=== PATIENT | female | born 1970 | race Caucasian/White ===

== ENCOUNTER 2016-07-09 15:03 | Emergency (ER) | payer SELFPAY ==
[~2016-07-09] VITALS: Ht 154.9 cm; Wt 61.0 kg
[2016-07-09 15:06] VITALS: Ht 154.9 cm; Wt 61.0 kg
== END 2016-07-10 01:44 | disposition left against medical advice (07) ==
LOC: E/R 15:03
DX: Z53.21 Procedure and treatment not carried out due to patient leaving prior to being seen by health care provider (principal)

== ENCOUNTER 2016-11-27 09:12 | Emergency (ER) | payer MEDICAID ==
[~2016-11-27] VITALS: Wt 61.0 kg
--- NOTE | 2016-11-27 09:59 | ERD ---
ER Documentation Chief Complaint Date/Time DATE: 11/27/16 TIME: 09:57 Chief Complaint right arm pain HPI 46-year-old female who presented emergency department for right elbow pain started yesterday while she was working. Patient stated that she was lifting an object, then twisted, heard a cracking sound to her right elbow. Reports that she developed severe pain after this. Denies headache, loss of consciousness, dizziness, blurry vision, changes in vision, photophobia, facial pain, ear pain, throat pain, difficulty swallowing, neck pain, shoulder pain, chest pain, cough, hemoptysis, abdominal pain, back pain, loss of appetite, nausea, vomiting, hematochezia, diarrhea, constipation, urinary symptoms, , the possibility of being , bladder and bowel incontinences, extremity weakness, numbness or tingling sensation, difficulty walking, recent travel, recent exposure to illness, recent antibiotic use in the last 3 months, fever, chills. No known drug allergies. Surgical history: 4. 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 Denies smoking, use of alcohol, use of illegal drugs. LMP was 10 days ago. A0. ROS All systems reviewed and are negative except as per history of present illness. Medications Home Meds Active Scripts Cyclobenzaprine Hcl* (Cyclobenzaprine Hcl*) 10 Mg Tablet, 10 MG PO Q12 Y for pain/muscle spasm, #15 TAB Prov:ERICA CRUZAR F 11/27/16 Ibuprofen* (Motrin*) 800 Mg Tab, 800 MG PO Q6H Y for PAIN AND OR ELEVATED TEMP, #30 TAB Prov:ESAU CRUZ F 11/27/16 Allergies Allergies: Coded Allergies: No Known Allergy (Verified , 12/30/13) PMhx/Soc History of Surgery: Yes (tubal ligation) Anesthesia Reaction: No Hx Neurological Disorder: No Hx Respiratory Disorders: No Hx Cardiac Disorders: No Hx Psychiatric Problems: No Hx Miscellaneous Medical Probl: No Hx Alcohol Use: Yes (occasional) Hx Substance Use: No Hx Tobacco Use: No Physical Exam Vitals Vital Signs Date Time Temp Pulse Resp B/P Pulse Ox O2 Delivery O2 Flow Rate FiO2 11/27/16 09:17 98.1 88 18 141/68 99 Physical Exam Const: [] Head: Atraumatic Eyes: Normal Conjunctiva ENT: Normal External Ears, Nose and Mouth. Neck: Full range of motion..~ No meningismus. Resp: Clear to auscultation bilaterally Cardio: Regular rate and rhythm, no murmurs Abd: Soft, non tender, non distended. Normal bowel sounds Skin: No petechiae or rashes Back: No midline or flank tenderness Ext: No cyanosis, or edema. Right elbow has tenderness medially and laterally but is good and full range of motion. Right shoulder/humerus/radial and ulnar aspect/wrist/hand/fingers are unremarkable. Left upper extremity are unremarkable. Neur: Awake and alert Psych: Normal Mood and Affect Results 24 hrs Current Medications Medications (Trade) Dose Ordered Sig/Capri Route PRN Reason Start Time Stop Time Status Last Admin Dose Admin Ibuprofen (Motrin) 800 mg ONCE ONCE PO 11/27/16 10:30 11/27/16 10:31 DC 11/27/16 10:10 Procedures/MDM Examination: Please see physical examination. Disease process, medical treatment was explained to the patient and family member. They verbalized understanding and agreed with the diagnostic tests, medical treatment, and follow-up care. Radiology: X-ray of the right elbow Impression: Unremarkable right elbow series. Treatment: Sling application. Re-evaluation: No neurovascular deficits prior to and after the application of splint Consultation: None. Differential diagnosis: Fracture versus displacement versus dislocation versus contusion versus sprain Medical decision makin-year-old female who presented emergency department for right elbow pain started yesterday while she was working. Patient stated that she was lifting an object, then twisted, heard a cracking sound to her right elbow. Reports that she developed severe pain after this. Patient's complaint, patient's history about her complaint, my physical findings, diagnostic test results, my reevaluation are consistent with my final diagnosis of elbow condition, elbow pain. Medications prescribed are the following: Flexeril. Motrin. Patient and family member are made aware of the side effects and adverse reactions of the medications prescribed. Instructed on when to seek emergent and medical attention in case allergic/anaphylactic reactions or severe side effects and or adverse reactions to medications. Patient and family member verbalized understanding. Patient instructed Instructed to follow-up with his PCP in 24-48 hours. Instructed to Call 911 for chest pain, shortness of breath. Advised to come back here in ED as soon as possible for severity of symptoms which includes but not limited to: any new symptoms; shortness of breath/difficulty of breathing; cardiovascular changes; severe gastrointestinal symptoms; signs and symptoms of bleeding and or infection; signs of compartment syndrome/neurovascular changes; neurological changes/deficits. Patient and family member verbalized understanding. Upon discharge, patient is alert and oriented x 4, speaks full and clear sentences, denies pain, has no neurological deficits, has no neurovascular deficits, difficulty of breathing. Breathing even and unlabored. Lung sounds are clear to auscultation. Not in distress. Appears comfortable. Ambulatory with steady gait. Appears satisfied with care provided here in ED. Departure Diagnosis: Primary Impression: Contusion Additional Impression: Elbow contusion Condition: Stable Additional Instructions: Instructed to follow-up with his PCP in 24-48 hours. Instructed to Call 911 for chest pain, shortness of breath. Advised to come back here in ED as soon as possible for severity of symptoms which includes but not limited to: any new symptoms; shortness of breath/difficulty of breathing; cardiovascular changes; severe gastrointestinal symptoms; signs and symptoms of bleeding and or infection; signs of compartment syndrome/neurovascular changes; neurological changes/deficits. Patient and family member verbalized understanding. ESAU CRUZ Nov 27, 2016 09:58
[2016-11-27] MEDS ORDERED: IBUPROFEN 800 MG TAB PO ONE (10:30)
--- NOTE | 2016-11-27 11:06 | RADRPT ---
PROCEDURE: CR Right Elbow CLINICAL INDICATION: Pain/injury TECHNIQUE: AP, lateral, and an oblique radiographs were submitted. COMPARISON: None FINDINGS: Osseous Structures: The osseous elements appear well mineralized and intact. Joint Spaces: The joint spaces are well maintained. No joint effusion is evident. Soft Tissues: Appear unremarkable. IMPRESSION: Unremarkable right elbow series. Physician Zackery Date Time Electronically viewed and signed by Geovanni Hernandez Physician on 11/27/2016 11:06 /
[2016-11-27] MEDS ORDERED: IBUP800T25 PO (11:20)
[2016-11-27] MEDS ORDERED: CYCL-319 PO (11:21)
== END 2016-11-27 11:49 | disposition home or self-care (01) ==
LOC: FTE 09:12
DX: S50.01XA Contusion of right elbow, initial encounter (principal); X50.9XXA Other and unspecified overexertion or strenuous movements or postures, initial encounter; Y92.89 Other specified places as the place of occurrence of the external cause
CPT/HCPCS: 73080; Z7502; Z7610